=== PATIENT | female | born 1995 | race Caucasian/White ===

== ENCOUNTER 2016-05-20 13:51 | Inpatient (IN) | payer OTHER ==
[2016-05-20] MEDS ORDERED: NOVOLOG100 UNIT/2 SC (14:16)
[2016-05-20] MEDS ORDERED: HYDROCODON-ACE1 EA16 PO (14:16)
[2016-05-20 14:45] LABS: BASO % 0.1 % (0-2); HCT-HEMATOCRIT 26.9 % (34.0-49.0); HGB-HEMOGLOBIN 8.2 gm/dl (12.0-15.5); IMMATURE GRANULOCYTES ABSOLUTE 0.02 tho/cmm (0-0.03); IMMATURE GRANULOCYTES PERCENT 0.2 % (0-0.3); LYMPH % 4.5 % (20-45); LYMPH ABSOLUTE COUNT 0.5 tho/cmm (0.8-4.5); MCH (MEAN CORPUSCULAR HGB) 20.5 pg (28.0-32.0); MCHC MEAN CORPUSCULAR HGB CONC 30.5 % (32.0-36.0); MCV (MEAN CELL VOLUME) 67.3 fl (82.0-96.0); MEAN PLATELET VOLUME 8.7 cmc (9.4-12.4); MONO % 1.5 % (0-12); MONOCYTE ABSOLUTE COUNT 0.2 tho/cmm (0.0-1.2); NEUTROPHIL ABSOLUTE COUNT 9.7 tho/cmm (1.6-8.0); NEUTROPHIL-AUTOMATED 9.7 tho/cmm (1.6-8.0); NEUTROPHILS % 93.7 % (40-80); PLATELET COUNT 326 tho/cmm (150-450); WHITE BLOOD COUNT 10.4 tho/cmm (4.0-10.0)
[2016-05-20 15:00] LABS: ALB/GLOB RATIO 0.8 (0.8-2.0); ALBUMIN 4.1 g/dl (3.5-5.0); ALCOHOL (ETOH) <10 mg/dl (<10); ALKALINE PHOSPHATASE 134 U/L (33-138); ALT/SGPT 22 U/L (12-78); ANION GAP 16 mmol/L (0-20); AST/SGOT 33 U/L (10-40); BILIRUBIN,TOTAL 0.4 mg/dl (0-1.5); BLOOD UREA NITROGEN 16 mg/dl (6-24); CALCIUM 9.1 mg/dl (8.5-10.5); CARBON DIOXIDE-VENOUS 23 mmol/L (22-32); CHLORIDE 102 mmol/l (96-110); CREATININE 0.77 mg/dl (0.50-1.10); GLUCOSE 278 mg/dL (70-110); LIPASE 52 U/L (73-393); PHOSPHOROUS 3.4 mg/dl (2.5-4.9); POTASSIUM 3.5 mmol/L (3.7-5.1); SODIUM 137 mmol/L (135-145); eGFR VALUE FOR BLACK >90 mL/Min
[2016-05-20 15:04] LABS: PREGNANCY-SERUM NEGATIVE (NEGATIVE)
[2016-05-20] MEDS ORDERED: AMOXICILLIN500 M1 PO (15:51)
[2016-05-20] MEDS ORDERED: TRI-LINYAH TAB1 EACH PO (16:01)
[2016-05-20 18:16] LABS: URINE BILIRUBIN NEGATIVE (NEG); URINE BLOOD NEGATIVE (NEG); URINE GLUCOSE (UA) LARGE (NEG); URINE KETONE MODERATE (NEG); URINE LEUKOCYTE ESTERASE NEGATIVE (NEG); URINE NITRITE NEGATIVE (NEG); URINE PROTEIN MODERATE (NEG)
[2016-05-20 18:17] LABS: URINE APPEARANCE CLEAR; URINE COLOR YELLOW
[2016-05-20 18:24] LABS: URINE EPITHELIAL CELLS 0 /[HPF] (0-10); URINE WBC 0-1 /[HPF] (0-5)
[2016-05-20 18:25] LABS: URINE RBC 0-3 /[HPF] (0-5)
[2016-05-20 23:54] LABS: ANION GAP 11 mmol/L (0-20); BLOOD UREA NITROGEN 13 mg/dl (6-24); CALCIUM 7.8 mg/dl (8.5-10.5); CARBON DIOXIDE-VENOUS 25 mmol/L (22-32); CHLORIDE 112 mmol/l (96-110); CREATININE 0.68 mg/dl (0.50-1.10); POTASSIUM 4.1 mmol/L (3.7-5.1); SODIUM 144 mmol/L (135-145); eGFR VALUE FOR BLACK >90 mL/Min
[2016-05-20 23:55] LABS: GLUCOSE 113 mg/dL (70-110)
[2016-05-21 02:30] LABS: ANION GAP 13 mmol/L (0-20); BLOOD UREA NITROGEN 13 mg/dl (6-24); CALCIUM 7.5 mg/dl (8.5-10.5); CARBON DIOXIDE-VENOUS 23 mmol/L (22-32); CHLORIDE 112 mmol/l (96-110); CREATININE 0.66 mg/dl (0.50-1.10); PHOSPHOROUS 1.6 mg/dl (2.5-4.9); SODIUM 144 mmol/L (135-145); eGFR VALUE FOR BLACK >90 mL/Min
[2016-05-21 02:31] LABS: GLUCOSE 204 mg/dL (70-110)
[2016-05-21 06:00] LABS: BASO % 0.1 % (0-2); IMMATURE GRANULOCYTES ABSOLUTE 0.02 tho/cmm (0-0.03); IMMATURE GRANULOCYTES PERCENT 0.2 % (0-0.3); LYMPH % 19.8 % (20-45); LYMPH ABSOLUTE COUNT 2.2 tho/cmm (0.8-4.5); MCH (MEAN CORPUSCULAR HGB) 20.5 pg (28.0-32.0); MCV (MEAN CELL VOLUME) 68.7 fl (82.0-96.0); MEAN PLATELET VOLUME 8.6 cmc (9.4-12.4); MONO % 6.4 % (0-12); MONOCYTE ABSOLUTE COUNT 0.7 tho/cmm (0.0-1.2); NEUTROPHIL ABSOLUTE COUNT 8.2 tho/cmm (1.6-8.0); NEUTROPHIL-AUTOMATED 8.2 tho/cmm (1.6-8.0); NEUTROPHILS % 73.5 % (40-80); PLATELET COUNT 320 tho/cmm (150-450); RED BLOOD COUNT 3.42 mil/cmm (4.00-5.20); RED CELL DISTRIBUTION WIDTH 15.4 % (12.4-16.4); WHITE BLOOD COUNT 11.2 tho/cmm (4.0-10.0)
[2016-05-21 06:02] LABS: HCT-HEMATOCRIT 23.5 % (34.0-49.0); MCHC MEAN CORPUSCULAR HGB CONC 29.8 % (32.0-36.0)
[2016-05-21 06:20] LABS: ALB/GLOB RATIO 0.8 (0.8-2.0); ALBUMIN 2.8 g/dl (3.5-5.0); ALKALINE PHOSPHATASE 84 U/L (33-138); ALT/SGPT 14 U/L (12-78); AMYLASE 31 U/L (20-90); ANION GAP 10 mmol/L (0-20); AST/SGOT 19 U/L (10-40); BILIRUBIN,TOTAL 0.2 mg/dl (0-1.5); BLOOD UREA NITROGEN 13 mg/dl (6-24); CALCIUM 7.6 mg/dl (8.5-10.5); CARBON DIOXIDE-VENOUS 24 mmol/L (22-32); CHLORIDE 116 mmol/l (96-110); CREATININE 0.61 mg/dl (0.50-1.10); LIPASE 58 U/L (73-393); POTASSIUM 3.8 mmol/L (3.7-5.1); SODIUM 146 mmol/L (135-145); eGFR VALUE FOR BLACK >90 mL/Min
[2016-05-21 06:21] LABS: GLUCOSE 95 mg/dL (70-110)
[2016-05-21 10:35] LABS: ANION GAP 15 mmol/L (0-20); BLOOD UREA NITROGEN 12 mg/dl (6-24); CALCIUM 7.8 mg/dl (8.5-10.5); CARBON DIOXIDE-VENOUS 18 mmol/L (22-32); CHLORIDE 111 mmol/l (96-110); CREATININE 0.72 mg/dl (0.50-1.10); GLUCOSE 357 mg/dL (70-110); POTASSIUM 4.3 mmol/L (3.7-5.1); SODIUM 140 mmol/L (135-145); eGFR VALUE FOR BLACK >90 mL/Min
[2016-05-22 05:42] LABS: BASO % 0.2 % (0-2); HCT-HEMATOCRIT 25.2 % (34.0-49.0); HGB-HEMOGLOBIN 7.3 gm/dl (12.0-15.5); IMMATURE GRANULOCYTES ABSOLUTE 0.02 tho/cmm (0-0.03); IMMATURE GRANULOCYTES PERCENT 0.2 % (0-0.3); LYMPH % 10.7 % (20-45); MCH (MEAN CORPUSCULAR HGB) 20.3 pg (28.0-32.0); MEAN PLATELET VOLUME 8.9 cmc (9.4-12.4); MONO % 4.2 % (0-12); MONOCYTE ABSOLUTE COUNT 0.4 tho/cmm (0.0-1.2); NEUTROPHIL ABSOLUTE COUNT 8.2 tho/cmm (1.6-8.0); NEUTROPHIL-AUTOMATED 8.2 tho/cmm (1.6-8.0); NEUTROPHILS % 84.7 % (40-80); PLATELET COUNT 321 tho/cmm (150-450); RED CELL DISTRIBUTION WIDTH 15.5 % (12.4-16.4); WHITE BLOOD COUNT 9.7 tho/cmm (4.0-10.0)
[2016-05-22 06:01] LABS: ANION GAP 15 mmol/L (0-20); BLOOD UREA NITROGEN 10 mg/dl (6-24); CALCIUM 8.3 mg/dl (8.5-10.5); CARBON DIOXIDE-VENOUS 19 mmol/L (22-32); CHLORIDE 112 mmol/l (96-110); CREATININE 0.67 mg/dl (0.50-1.10); GLUCOSE 334 mg/dL (70-110); SODIUM 142 mmol/L (135-145); eGFR VALUE FOR BLACK >90 mL/Min
[2016-05-22 10:12] LABS: MAGNESIUM 2.1 mg/dl (1.3-2.6); PHOSPHOROUS 1.7 mg/dl (2.5-4.9)
[2016-05-23 05:36] LABS: ANION GAP 13 mmol/L (0-20); BASO % 0.1 % (0-2); BLOOD UREA NITROGEN 8 mg/dl (6-24); CALCIUM 7.7 mg/dl (8.5-10.5); CARBON DIOXIDE-VENOUS 24 mmol/L (22-32); CHLORIDE 111 mmol/l (96-110); CREATININE 0.53 mg/dl (0.50-1.10); GLUCOSE 189 mg/dL (70-110); HGB-HEMOGLOBIN 6.8 gm/dl (12.0-15.5); IMMATURE GRANULOCYTES ABSOLUTE 0.02 tho/cmm (0-0.03); IMMATURE GRANULOCYTES PERCENT 0.3 % (0-0.3); LYMPH % 20.7 % (20-45); LYMPH ABSOLUTE COUNT 1.7 tho/cmm (0.8-4.5); MCH (MEAN CORPUSCULAR HGB) 20.5 pg (28.0-32.0); MCV (MEAN CELL VOLUME) 69.6 fl (82.0-96.0); MEAN PLATELET VOLUME 8.8 cmc (9.4-12.4); MONO % 5.1 % (0-12); MONOCYTE ABSOLUTE COUNT 0.4 tho/cmm (0.0-1.2); NEUTROPHIL ABSOLUTE COUNT 5.9 tho/cmm (1.6-8.0); NEUTROPHIL-AUTOMATED 5.9 tho/cmm (1.6-8.0); NEUTROPHILS % 73.8 % (40-80); PLATELET COUNT 284 tho/cmm (150-450); POTASSIUM 3.9 mmol/L (3.7-5.1); RED BLOOD COUNT 3.32 mil/cmm (4.00-5.20); RED CELL DISTRIBUTION WIDTH 15.3 % (12.4-16.4); SODIUM 144 mmol/L (135-145); eGFR VALUE FOR BLACK >90 mL/Min
[2016-05-23 05:51] LABS: HCT-HEMATOCRIT 23.1 % (34.0-49.0); MCHC MEAN CORPUSCULAR HGB CONC 29.4 % (32.0-36.0)
== END 2016-05-23 13:54 | DRG 639 ==
LOC: EDMED 13:51 → EMR2 17:39 → PCUA 20:10
PROVIDERS: Emergency Medicine; ADMIT Family Medicine
DX: E10.10 Type 1 diabetes mellitus with ketoacidosis without coma (principal); E86.0 Dehydration; Z79.4 Long term (current) use of insulin; F10.120 Alcohol abuse with intoxication, uncomplicated; Y90.0 Blood alcohol level of less than 20 mg/100 ml; D64.9 Anemia, unspecified
CPT/HCPCS: C9113; G0480; J1650; J1815; J2405; J2550; J2765; J3475; J3480; J7030; J7050; P9612